=== PATIENT | female | born 1980 | race Caucasian/White ===

== ENCOUNTER 2017-04-25 11:15 | Inpatient (IN) | payer OTHER ==
[~2017-04-25] VITALS: Ht 152.4 cm; Wt 59.0 kg
[2017-05-08] MEDS ORDERED: PRENATAL TABLE1 EAC1 PO (23:16)
== END 2017-05-10 16:15 | DRG 775 ==
LOC: LDR 05-08 23:03 → OB/GYN 05-08 23:03
PROC: 4A1HXCZ Monitoring of Products of Conception, Cardiac Rate, External Approach (ICD-10-PCS; 2017-05-08)
PROC: 10E0XZZ Delivery of Products of Conception, External Approach (ICD-10-PCS; principal; 2017-05-09)
PROC: 0HQ9XZZ Repair Perineum Skin, External Approach (ICD-10-PCS; 2017-05-09)
DX: O70.0 First degree perineal laceration during delivery (principal); Z37.0 Single live birth; Z3A.38 38 weeks gestation of pregnancy; O42.02 Full-term premature rupture of membranes, onset of labor within 24 hours of rupture